=== PATIENT | female | born 1935 | race Hispanic/Latino ===

== ENCOUNTER 2023-02-25 10:08 | Emergency (ER) | payer OTHER ==
[~2023-02-25] VITALS: Ht 165.1 cm; Wt 72.6 kg
[2023-02-25 11:51] LABS: BASOPHILS # (AUTO) 0.09 K/uL (0.00-0.20); BASOPHILS % (AUTO) 1.3 % (0.0-5.0); EOSINOPHILS # (AUTO) 0.45 K/uL (0.00-0.70); EOSINOPHILS % (AUTO) 6.5 % (0.0-8.0); HEMATOCRIT 45.5 % (36-48); IMMATURE GRANULOCYTE ABSOLUTE 0.03 K/uL (0-1); LYMPHOCYTES % (AUTO) 29.4 % (21.0-51.0); MEAN CORPUSCULAR HEMOGLOBIN 27.3 pg (27.0-33.0); MEAN CORPUSCULAR HGB CONC 32.3 g/dL (32.0-36.0); MEAN CORPUSCULAR VOLUME 84.4 fL (79-99); MONOCYTES # (AUTO) 0.5 K/uL (0.1-1.0); MONOCYTES % (AUTO) 7.8 % (3.0-13.0); NEUTROPHILS # (AUTO) 3.8 K/uL (1.8-7.7); NEUTROPHILS % (AUTO) 54.6 % (40.0-77.0); PLATELET COUNT (AUTO) 361 K/uL (130-400); RED BLOOD CELL COUNT(AUTO) 5.39 MIL/uL (4.00-5.50); RED CELL DISTRIBUTION WIDTH 13.8 % (11.0-15.5); WHITE BLOOD COUNT (AUTO) 6.9 K/uL (4.8-10.8)
[2023-02-25 11:59] LABS: CREATININE 0.7 mg/dL (0.5-1.5); POTASSIUM 4.3 mmol/L (3.5-5.1)
[2023-02-25 12:04] LABS: ALBUMIN 3.7 g/dL (3.5-5.0); BILIRUBIN,TOTAL 0.5 mg/dL (0.2-1.0); TOTAL PROTEIN, SERUM 7.8 g/dL (6.0-8.3)
[2023-02-25 13:55] LABS: APPEARANCE,URINE CLOUDY (CLEAR); BILIRUBIN,URINE NEGATIVE (NEGATIVE); COLOR,URINE LIGHT-YELLOW (YELLOW); GLUCOSE, URINE (UA) NEGATIVE (NEGATIVE); KETONES,URINE 5 mg/dL (NEGATIVE); LEUKOCYTE ESTERASE ,URINE 500 Leu/uL (NEGATIVE); NITRATE,URINE NEGATIVE (NEGATIVE); OCCULT BLOOD,URINE NEGATIVE (NEGATIVE); PH,URINE 6.5 (5.0-8.0); PROTEIN,URINE 10 mg/dL (NEGATIVE); UROBILINOGEN,URINE 0.2 mg/dL (0.2-1.0)
[2023-02-25 14:05] LABS: ADD UA MICROSCOPIC YES
[2023-02-25 14:15] LABS: BACTERIA,URINE RARE /HPF (None Seen); MUCUS,URINE RARE LPF (None Seen); SQUAMOUS EPITHELIAL CELL,UR RARE /HPF (0-2); WBC,URINE 26-50 /HPF (0-1); YEAST,URINE BUDDING RARE /HPF (None Seen)
[2023-02-25] MEDS: LACTATED RINGERS 1000ML 1,000 ML IV ONE (15:38)
[2023-02-25] MEDS ORDERED: CEPH500B PO (16:52)
[2023-02-25 17:06] VITALS: BP 164/80; PULSE 90; RESP 16; O2SAT 99
[2023-02-25] MEDS: CEPHALEXIN 500 MG CAPSULE PO ONE (17:10)
== END 2023-02-25 17:24 | disposition home or self-care (01) ==
LOC: EDH 10:08
DX: N39.0 Urinary tract infection, site not specified (principal); R19.5 Other fecal abnormalities; I10 Essential (primary) hypertension; Z85.3 Personal history of malignant neoplasm of breast; Z90.49 Acquired absence of other specified parts of digestive tract
CPT/HCPCS: 99285; 96360; 71045; 82270; 80053; 83690; 85025; 86850; 86900; 86901; 87077 ×2; 87088; 87186 ×2; 81001; 36415; 93005; J7120

== ENCOUNTER 2024-01-02 13:38 | Inpatient (IN) | payer MEDICARE, OTHER ==
[~2024-01-02] VITALS: Ht 160 cm; Wt 75.3 kg
[~2024-01-02 13:38] MED LIST: CEPH500B PO
[2024-01-02 14:24] LABS: BASOPHILS # (AUTO) 0.03 K/uL (0.00-0.20); BASOPHILS % (AUTO) 0.3 % (0.0-5.0); EOSINOPHILS # (AUTO) 0.01 K/uL (0.00-0.70); EOSINOPHILS % (AUTO) 0.1 % (0.0-8.0); IMMATURE GRANULOCYTE ABSOLUTE 0.05 K/uL (0-1); LYMPHOCYTES # (AUTO) 1.2 K/uL (1.0-4.8); LYMPHOCYTES % (AUTO) 11.6 % (21.0-51.0); MEAN CORPUSCULAR HEMOGLOBIN 28.5 pg (27.0-33.0); MEAN CORPUSCULAR HGB CONC 36.4 g/dL (32.0-36.0); MEAN CORPUSCULAR VOLUME 78.3 fL (79-99); MONOCYTES # (AUTO) 0.7 K/uL (0.1-1.0); NEUTROPHILS # (AUTO) 8.2 K/uL (1.8-7.7); NEUTROPHILS % (AUTO) 80.5 % (40.0-77.0); PLATELET COUNT (AUTO) 332 K/uL (130-400); RED CELL DISTRIBUTION WIDTH 12.2 % (11.0-15.5); WHITE BLOOD COUNT (AUTO) 10.2 K/uL (4.8-10.8)
[2024-01-02 14:29] LABS: CREATININE 0.9 mg/dL (0.5-1.0); POTASSIUM 3.8 mmol/L (3.5-5.1)
[2024-01-02] MEDS ORDERED: ESCI20TA38 PO (15:42)
[2024-01-02] MEDS ORDERED: MELO-108 PO (15:42)
[2024-01-02] MEDS ORDERED: OLME40TA18 PO (15:42)
[2024-01-02] MEDS ORDERED: HYDR25TA PO (15:42)
[2024-01-02] MEDS ORDERED: CLON0.1T PO (15:42)
[2024-01-02] MEDS ORDERED: PANT40TA54 PO (15:42)
[2024-01-02] MEDS ORDERED: AMLO-258 PO (15:42)
[2024-01-02] MEDS: 0.9%NACL 1000ML 1,000 ML IV SCH (15:53)
[2024-01-02] MEDS: ONDANSETRON 4MG INJ IVP ONE (16:30)
[2024-01-02] MEDS: MORPHINE 2 MG SYG IVP ONE (16:31)
[2024-01-02 19:00] VITALS: BP 150/80; PULSE 91; RESP 20
[2024-01-02 19:30] VITALS: O2SAT 95
[2024-01-02] MEDS: CITALOPRAM 20 MG TABLET PO SCH (21:13)
[2024-01-02] MEDS: METHOCARBAMOL 500 MG TABLET PO PRN (21:13)
[2024-01-02] MEDS: LOSARTAN 50 MG TABLET PO SCH (21:13)
[2024-01-02 21:29] LABS: APPEARANCE,URINE CLEAR (CLEAR); BILIRUBIN,URINE NEGATIVE (NEGATIVE); COLOR,URINE LIGHT-YELLOW (YELLOW); GLUCOSE, URINE (UA) NEGATIVE (NEGATIVE); KETONES,URINE 20 mg/dL (NEGATIVE); LEUKOCYTE ESTERASE ,URINE NEGATIVE Leu/uL (NEGATIVE); NITRATE,URINE NEGATIVE (NEGATIVE); OCCULT BLOOD,URINE NEGATIVE (NEGATIVE); PROTEIN,URINE 20 mg/dL (NEGATIVE); UROBILINOGEN,URINE 0.2 mg/dL (0.2-1.0)
[2024-01-02 21:33] LABS: ADD UA MICROSCOPIC YES
[2024-01-02 21:34] LABS: SQUAMOUS EPITHELIAL CELL,UR RARE /HPF (0-2); WBC,URINE 0-1 /HPF (0-1)
[2024-01-02 23:00] VITALS: BP 164/84; PULSE 75; RESP 20
[2024-01-03 04:00] VITALS: BP 108/82; PULSE 89; RESP 20
[2024-01-03 05:27] LABS: BASOPHILS # (AUTO) 0.01 K/uL (0.00-0.20); BASOPHILS % (AUTO) 0.1 % (0.0-5.0); EOSINOPHILS # (AUTO) 0.01 K/uL (0.00-0.70); EOSINOPHILS % (AUTO) 0.1 % (0.0-8.0); HEMATOCRIT 34.6 % (36-48); IMMATURE GRANULOCYTE ABSOLUTE 0.03 K/uL (0-1); LYMPHOCYTES # (AUTO) 1.6 K/uL (1.0-4.8); LYMPHOCYTES % (AUTO) 18.3 % (21.0-51.0); MEAN CORPUSCULAR HEMOGLOBIN 28.6 pg (27.0-33.0); MEAN CORPUSCULAR HGB CONC 36.4 g/dL (32.0-36.0); MEAN CORPUSCULAR VOLUME 78.5 fL (79-99); MONOCYTES % (AUTO) 11.6 % (3.0-13.0); NEUTROPHILS # (AUTO) 5.9 K/uL (1.8-7.7); NEUTROPHILS % (AUTO) 69.5 % (40.0-77.0); PLATELET COUNT (AUTO) 326 K/uL (130-400); RED BLOOD CELL COUNT(AUTO) 4.41 MIL/uL (4.00-5.50); RED CELL DISTRIBUTION WIDTH 12.2 % (11.0-15.5); WHITE BLOOD COUNT (AUTO) 8.5 K/uL (4.8-10.8)
[2024-01-03 05:52] LABS: ALBUMIN 3.4 g/dL (3.5-5.0); CREATININE 0.7 mg/dL (0.5-1.0); POTASSIUM 3.4 mmol/L (3.5-5.1); TOTAL PROTEIN, SERUM 7.2 g/dL (6.0-8.3)
[2024-01-03 07:15] VITALS: BP 167/80; PULSE 89; RESP 19
[2024-01-03 09:00] VITALS: O2SAT 96
[2024-01-03] MEDS ORDERED: MELOXICAM 7.5 MG TABLET PO SCH (09:00)
[2024-01-03] MEDS ORDERED: POTASSIUM CHLORIDE 20MEQ/100ML 100 ML IV PRN (09:30)
[2024-01-03] MEDS ORDERED: POTASSIUM CHLORIDE 10% ELIXIR 20 MEQ/15 ML UDCUP PO PRN (09:30)
[2024-01-03] MEDS: PANTOPRAZOLE 40 MG TAB DR PO SCH (10:05)
[2024-01-03] MEDS: KCL 20 MEQ ERTAB PO PRN (10:05)
[2024-01-03] MEDS: AMLODIPINE 5 MG TAB PO SCH (10:05)
[2024-01-03 10:55] VITALS: BP 169/91; PULSE 91; RESP 19
[2024-01-03] MEDS: CLONIDINE HCL 0.1 MG TABLET PO PRN (12:04)
[2024-01-03] MEDS: MORPHINE 2 MG SYG IVP PRN (14:37)
[2024-01-03] MEDS: ONDANSETRON 4MG INJ IVP PRN (14:37)
[2024-01-03 16:08] VITALS: BP 150/83; PULSE 95; RESP 19
[2024-01-03 20:00] VITALS: BP 161/91; PULSE 92; RESP 20; O2SAT 96
[2024-01-04] VITALS (8 sets, daily range): BP systolic 136–176; BP diastolic 60–96; PULSE 78–95; RESP 16–20; O2SAT 97
[2024-01-04 05:29] LABS: BASOPHILS # (AUTO) 0.01 K/uL (0.00-0.20); BASOPHILS % (AUTO) 0.1 % (0.0-5.0); EOSINOPHILS # (AUTO) 0.03 K/uL (0.00-0.70); EOSINOPHILS % (AUTO) 0.4 % (0.0-8.0); HEMATOCRIT 30.5 % (36-48); IMMATURE GRANULOCYTE ABSOLUTE 0.03 K/uL (0-1); LYMPHOCYTES # (AUTO) 1.4 K/uL (1.0-4.8); MEAN CORPUSCULAR HEMOGLOBIN 28.4 pg (27.0-33.0); MEAN CORPUSCULAR HGB CONC 36.7 g/dL (32.0-36.0); MEAN CORPUSCULAR VOLUME 77.2 fL (79-99); MONOCYTES # (AUTO) 0.9 K/uL (0.1-1.0); MONOCYTES % (AUTO) 12.9 % (3.0-13.0); NEUTROPHILS # (AUTO) 4.8 K/uL (1.8-7.7); NEUTROPHILS % (AUTO) 67.2 % (40.0-77.0); PLATELET COUNT (AUTO) 296 K/uL (130-400); RED BLOOD CELL COUNT(AUTO) 3.95 MIL/uL (4.00-5.50); RED CELL DISTRIBUTION WIDTH 12.2 % (11.0-15.5); WHITE BLOOD COUNT (AUTO) 7.1 K/uL (4.8-10.8)
[2024-01-04 05:47] LABS: ALBUMIN 2.9 g/dL (3.5-5.0); BILIRUBIN,TOTAL 1.1 mg/dL (0.2-1.0); CREATININE 0.6 mg/dL (0.5-1.0); POTASSIUM 3.6 mmol/L (3.5-5.1); TOTAL PROTEIN, SERUM 6.3 g/dL (6.0-8.3)
[2024-01-04] MEDS: LACTULOSE 20 GM/30 ML UDCUP PO PRN (19:07)
[2024-01-04] MEDS: MIRTAZAPINE 15 MG TABLET PO SCH (19:56)
[2024-01-05] VITALS (13 sets, daily range): BP systolic 122–152; BP diastolic 51–89; PULSE 77–104; RESP 16–21; O2SAT 97–99
[2024-01-05 04:52] LABS: BASOPHILS # (AUTO) 0.02 K/uL (0.00-0.20); BASOPHILS % (AUTO) 0.2 % (0.0-5.0); EOSINOPHILS # (AUTO) 0.08 K/uL (0.00-0.70); EOSINOPHILS % (AUTO) 0.6 % (0.0-8.0); HEMATOCRIT 33.8 % (36-48); IMMATURE GRANULOCYTE ABSOLUTE 0.06 K/uL (0-1); LYMPHOCYTES # (AUTO) 1.7 K/uL (1.0-4.8); LYMPHOCYTES % (AUTO) 12.7 % (21.0-51.0); MEAN CORPUSCULAR HEMOGLOBIN 27.9 pg (27.0-33.0); MEAN CORPUSCULAR HGB CONC 35.8 g/dL (32.0-36.0); MEAN CORPUSCULAR VOLUME 78.1 fL (79-99); MONOCYTES # (AUTO) 1.3 K/uL (0.1-1.0); MONOCYTES % (AUTO) 9.6 % (3.0-13.0); NEUTROPHILS # (AUTO) 10.1 K/uL (1.8-7.7); NEUTROPHILS % (AUTO) 76.4 % (40.0-77.0); PLATELET COUNT (AUTO) 318 K/uL (130-400); RED BLOOD CELL COUNT(AUTO) 4.33 MIL/uL (4.00-5.50); RED CELL DISTRIBUTION WIDTH 12.3 % (11.0-15.5); WHITE BLOOD COUNT (AUTO) 13.3 K/uL (4.8-10.8)
[2024-01-05 05:01] LABS: BILIRUBIN,TOTAL 1.3 mg/dL (0.2-1.0); CREATININE 0.6 mg/dL (0.5-1.0); POTASSIUM 3.4 mmol/L (3.5-5.1); TOTAL PROTEIN, SERUM 6.4 g/dL (6.0-8.3)
[2024-01-05] MEDS: SODIUM CHLORIDE 1,000 MG TAB PO ONE (10:00)
[2024-01-05] MEDS: ALBUTEROL 0.083% 2.5 MG/3 ML INH IH SCH (11:13)
[2024-01-06] VITALS (14 sets, daily range): BP systolic 99–164; BP diastolic 58–89; PULSE 62–87; RESP 16–22; O2SAT 96–99
[2024-01-06 04:30] LABS: CREATININE 0.7 mg/dL (0.5-1.0)
[2024-01-06] MEDS: SODIUM CHLORIDE 1,000 MG TAB PO ONE (10:42)
[2024-01-06] MEDS: MIRTAZAPINE 15 MG TABLET PO SCH (20:59)
[2024-01-07] VITALS (12 sets, daily range): BP systolic 107–140; BP diastolic 62–75; PULSE 75–88; RESP 17–19; O2SAT 97–99
[2024-01-07 04:56] LABS: POTASSIUM 4.1 mmol/L (3.5-5.1)
[2024-01-07] MEDS: SODIUM CHLORIDE 1,000 MG TAB PO SCH (09:59)
[2024-01-08] VITALS: BP 148/69; PULSE 100; RESP 20
[2024-01-08 00:08] VITALS: PULSE 101; RESP 19
[2024-01-08 04:00] VITALS: BP 178/88; PULSE 83; RESP 18
[2024-01-08 06:38] VITALS: PULSE 81; PULSE 82; RESP 19; O2SAT 96
[2024-01-08 07:32] VITALS: BP 132/73; PULSE 91; RESP 17
[2024-01-08 07:33] VITALS: O2SAT 98
== END 2024-01-08 08:45 | disposition home or self-care (01) | DRG 641 ==
LOC: EDH 13:38 → EDHIP 15:43 → 4AH 17:40
PROVIDERS: ADMIT Internal Medicine; ATTEND Internal Medicine
DX: E87.1 Hypo-osmolality and hyponatremia (principal); N39.0 Urinary tract infection, site not specified; E87.8 Other disorders of electrolyte and fluid balance, not elsewhere classified; I10 Essential (primary) hypertension; F32.A Depression, unspecified; E78.00 Pure hypercholesterolemia, unspecified; E11.9 Type 2 diabetes mellitus without complications; F03.90 Unspecified dementia, unspecified severity, without behavioral disturbance, psychotic disturbance, mood disturbance, and anxiety; M79.605 Pain in left leg; G47.00 Insomnia, unspecified; H91.93 Unspecified hearing loss, bilateral; R62.7 Adult failure to thrive; Z85.3 Personal history of malignant neoplasm of breast; Z90.12 Acquired absence of left breast and nipple; Z90.49 Acquired absence of other specified parts of digestive tract; Z79.899 Other long term (current) drug therapy
CPT/HCPCS: 36415; 71045; 73503; 80048; 80053; 81001; 82533; 83935; 84300; 84443; 85025; 94640; 94664; G0378; J2270; J2405

== ENCOUNTER → 2024-08-03 | Outpatient (CLI) | payer MEDICARE, OTHER ==
[~2024-08-03] MED LIST changes: +AMLO-258 PO; -CEPH500B PO; +CLON0.1T PO; +ESCI20TA38 PO; +HYDR25TA PO; +MELO-108 PO; +OLME40TA18 PO; +PANT40TA54 PO
--- NOTE | 2024-08-03 16:48 | HMCIMG ---
HIP UNILAT 2-3VW LEFT REASON: OSTEOARTHRITIS OF HIP TECHNIQUE: 3 views were obtained. FINDINGS: There is no evidence of fracture or dislocation. There is no joint effusion. The soft tissues appear unremarkable. There is no evidence of a radiopaque foreign body. IMPRESSION: No acute findings.
== END | disposition home or self-care (01) ==
LOC: RAH 15:52
PROVIDERS: ATTEND Internal Medicine
DX: M16.12 Unilateral primary osteoarthritis, left hip (principal)
CPT/HCPCS: 73502

== ENCOUNTER → 2025-01-16 | Outpatient (CLI) | payer OTHER ==
--- NOTE | 2025-01-17 05:35 | HMCIMG ---
EXAM: CR Pelvis and Left Hip, 3 views. CLINICAL HISTORY: Osteoarthritis. COMPARISON: Radiograph of the left hip dated 08/03/2024. FINDINGS: No acute fracture or aggressive appearing osseous lesion. Mild osteoarthritis in the bilateral hip, sacroiliac, and symphysis pubis joints. Degenerative changes in the lumbosacral spine. Mild osteopenia. Presumed tiny pelvic phleboliths. IMPRESSION: No acute bony abnormality is evident. Mild osteopenia. Mild osteoarthritis. No gross interval changes. /[place]
== END | disposition home or self-care (01) ==
LOC: RAH 10:33
PROVIDERS: ATTEND Internal Medicine
DX: M16.0 Bilateral primary osteoarthritis of hip (principal); M46.1 Sacroiliitis, not elsewhere classified; M85.88 Other specified disorders of bone density and structure, other site; M47.817 Spondylosis without myelopathy or radiculopathy, lumbosacral region
CPT/HCPCS: 73502